=== PATIENT | male | born 1975 | race Caucasian/White ===

== ENCOUNTER 2022-09-29 20:40 | Emergency (ER) | payer BC, OTHER ==
[2022-09-29 20:52] VITALS: BMI 29.2
[2022-09-29 22:04] LABS: EOS % 0.8 % (0-4.5); HEMATOCRIT 40.3 % (35.4-49); HEMOGLOBIN 13.6 GM/dL (11.7-16.9); LYMPH % 21.7 % (8-40); MCH 28.5 pg (25.7-33.7); MCHC 33.8 g/dl (32.0-35.9); MEAN CELL VOLUME 84.4 fl (80-96); MEAN PLT VOLUME 8.8 fl (7.5-11.1); MONO % 11.1 % (3.8-10.2); NEUT % 65.4 % (42.8-82.8); PLATELET COUNT 276 10^3/uL (134-434); RBC 4.78 M/mm3 (4.00-5.60); RDW 13.9 % (11.9-15.9); WHITE BLOOD COUNT 9.5 K/mm3 (4.0-10.0)
[2022-09-29 22:10] LABS: INR 1.03 (0.83-1.09)
[2022-09-29 22:13] LABS: ACTIVATED PTT 32.3 SECONDS (25.2-36.5)
[2022-09-29 22:19] LABS: POTASSIUM 3.8 mmol/L (3.5-5.1)
[2022-09-29 22:21] LABS: ALBUMIN 3.9 g/dl (3.4-5.0); CALCIUM 8.4 mg/dL (8.5-10.1)
[2022-09-29 22:22] LABS: BLOOD UREA NITROGEN 17.6 mg/dL (7-18)
[2022-09-29 22:25] LABS: CREATININE 1.3 mg/dL (0.55-1.3)
[2022-09-29 22:26] LABS: TOT PROT 7.6 g/dl (6.4-8.2)
[2022-09-29 22:27] LABS: BILIRUBIN,TOTAL 0.4 mg/dL (0.2-1)
[2022-09-30 01:14] VITALS: TEMP 97.8
[2022-09-30 01:15] VITALS: BP 113/77; PULSE 66; RESP 15
== END 2022-09-30 02:03 | disposition left against medical advice (07) ==
LOC: JER 20:40
DX: R42 Dizziness and giddiness (principal); R00.2 Palpitations; R51.9 Headache, unspecified; R07.89 Other chest pain; Z20.822 Contact with and (suspected) exposure to COVID-19
CPT/HCPCS: 0241U-QW; 36415; 71045-TC-FY; 80053; 84484; 85025; 85610; 85730; 93005; 93010; 99285-25

== ENCOUNTER 2022-09-30 12:17 | Emergency (ER) | payer BC, OTHER ==
[2022-09-30 12:25] VITALS: BP 128/84; PULSE 89; RESP 16; TEMP 97.9; BMI 20.5
[2022-09-30 13:45] LABS: BASO % 0.8 % (0-2.0); EOS % 0.7 % (0-4.5); HEMATOCRIT 41.5 % (35.4-49); HEMOGLOBIN 14.4 GM/dL (11.7-16.9); LYMPH % 18.4 % (8-40); MCH 28.8 pg (25.7-33.7); MCHC 34.6 g/dl (32.0-35.9); MEAN CELL VOLUME 83.2 fl (80-96); MEAN PLT VOLUME 8.4 fl (7.5-11.1); MONO % 11.2 % (3.8-10.2); NEUT % 68.9 % (42.8-82.8); PLATELET COUNT 276 10^3/uL (134-434); RBC 4.99 M/mm3 (4.00-5.60); RDW 14.3 % (11.9-15.9); WHITE BLOOD COUNT 7.9 K/mm3 (4.0-10.0)
[2022-09-30 13:55] LABS: POTASSIUM 4.3 mmol/L (3.5-5.1)
[2022-09-30 13:57] LABS: CALCIUM 8.8 mg/dL (8.5-10.1)
[2022-09-30 13:58] LABS: ALBUMIN 3.8 g/dl (3.4-5.0); BLOOD UREA NITROGEN 12.8 mg/dL (7-18)
[2022-09-30 14:01] LABS: CREATININE 1.2 mg/dL (0.55-1.3)
[2022-09-30 14:03] LABS: TOT PROT 7.5 g/dl (6.4-8.2)
[2022-09-30 14:35] LABS: BILIRUBIN,TOTAL 0.8 mg/dL (0.2-1)
== END 2022-09-30 14:50 | disposition home or self-care (01) ==
LOC: JER 12:17
DX: R07.89 Other chest pain (principal); R00.2 Palpitations; R42 Dizziness and giddiness
CPT/HCPCS: 36415; 80053; 84443; 84484; 85025; 85379; 99283-25